=== PATIENT | female | born 1965 ===

== ENCOUNTER 2020-03-03 08:13 | Outpatient (CLI) | payer OTHER ==
[~2020-03-03 08:13] MED LIST: ALBUTEROL0.63 MG/3; AMOX1TAB12 PO; AUGMENTIN1 TAB.SR2; BENADRYL25 MG PO; HYDROCHLOROTH12.5 M1; LISINOPRIL10 MG; SYNTHROID50 MCG; TESSALON PERLE100 MG; ZYRTEC10 M3 PO
== END 2020-03-03 16:05 | disposition home or self-care (01) ==
LOC: LAB 08:13
PROVIDERS: ATTEND Orthopaedic Surgery
DX: M85.88 Other specified disorders of bone density and structure, other site (principal); E21.2 Other hyperparathyroidism; E55.9 Vitamin D deficiency, unspecified; E88.89 Other specified metabolic disorders; M81.8 Other osteoporosis without current pathological fracture; E56.1 Deficiency of vitamin K